=== PATIENT | female | born 1990 | race Caucasian/White ===

== ENCOUNTER 2024-06-26 00:01 | Emergency (ER) | payer OTHER ==
[~2024-06-26] VITALS: Ht 157.5 cm; Wt 75.0 kg
[2024-06-26] MEDS ORDERED: MOXI3DRO25 LEFTEYE (00:52)
[2024-06-26] MEDS: moxifloxacin 0.5% ophthalmic drops 3ml RIGHTEYE SCH (00:55)
[2024-06-26 01:01] VITALS: BP 146/92; PULSE 70; RESP 16; TEMP 98.6; O2SAT 99
== END 2024-06-26 01:04 | disposition home or self-care (01) ==
LOC: ER 00:02
DX: H10.9 Unspecified conjunctivitis (principal); Z88.8 Allergy status to other drugs, medicaments and biological substances
CPT/HCPCS: 99283